=== PATIENT | male | born 1935 | race Caucasian/White ===

== ENCOUNTER 2021-05-11 07:18 | Inpatient (IN) | payer OTHER ==
[~2021-05-11] VITALS: Ht 193 cm; Wt 79.1 kg
[~2021-05-11 07:18] MED LIST: ANTACID; BLOOD PRESSURE MED; DOXA4; HYDACE5; MELO7.5; OXYCONTIN; [UNRECOGNIZED DRUG - OTHER]
[2021-05-11] MEDS ORDERED: PRAV20 PO (07:40)
[2021-05-11] MEDS ORDERED: Quinapril HCl10 MG PO (07:40)
[2021-05-11 07:43] LABS: BASOPHILS ABSOLUTE AUTO 0.05 K/mm3 (0.00-0.23); BASOPHILS PERCENT AUTO 1 % (0-2); EOSINOPHILS ABSOLUTE AUTO 0.19 K/mm3 (0.00-0.68); EOSINOPHILS PERCENT AUTO 3 % (0-6); Hemoglobin 14.9 g/dL (13.5-17.5); IMMATURE GRAN ABSOLUTE AUTO 0.01 K/mm3 (0.00-0.10); IMMATURE GRAN PERCENT AUTO 0 % (0-1); LYMPHOCYTES ABSOLUTE AUTO 1.64 K/mm3 (0.84-5.20); LYMPHOCYTES PERCENT AUTO 26 % (21-46); MONOCYTES ABSOLUTE AUTO 0.68 K/mm3 (0.16-1.47); MONOCYTES PERCENT AUTO 11 % (4-13); Mean Corpuscular HGB Conc 33.1 g/dL (31.5-36.5); Mean Corpuscular Volume 100 fL (80-100); Mean Platelet Volume 11.2 fL (9.1-12.4); NEUTROPHILS ABSOLUTE AUTO 3.87 K/mm3 (1.96-9.15); NEUTROPHILS PERCENT AUTO 60 % (41-73); Platelet Count 109 K/mm3 (150-400); RDW Coefficient Variation 12.4 % (11.7-14.2); RDW Standard Deviation 45.6 fL (35.1-46.3); Red Blood Cell Count 4.51 M/mm3 (4.30-5.90); White Blood Cell Count 6.44 K/mm3 (4.00-11.30)
[2021-05-11 08:01] LABS: Alanine Aminotransfer (ALT/SGP 40 U/L (12-78); Albumin, Blood 3.4 g/dL (3.4-5.0); Alk Phos 65 U/L (50-136); Anion Gap 4 mmol/L (6-16); Aspartate Aminotrans (AST/SGOT 38 U/L (12-37); Blood Urea Nitrogen 16 mg/dL (8-24); Bun/Creatinine Ratio 15.7 (12.0-20.0); CO2, Blood 27 mmol/L (21-32); Calcium, Blood 8.4 mg/dL (8.5-10.1); Chloride, Blood 110 mmol/L (98-108); Creatinine, Blood 1.02 mg/dL (0.60-1.20); Globulin, Blood 3.4 g/dL (2.2-4.0); Glomerular Filtration Rate >60 (60-); Glucose, Blood 102 mg/dL (70-99); Potassium, Blood 4.2 mmol/L (3.5-5.5); Sodium, Blood 141 mmol/L (136-145); Total Protein, Blood 6.8 g/dL (6.4-8.2)
[2021-05-11 08:04] LABS: Troponin I 0.665 ng/mL (0.000-0.040)
[2021-05-11 09:33] LABS: International Normalized Ratio 1.05
[2021-05-11 10:35] LABS: Influenza A, PCR NEGATIVE (NEGATIVE); Influenza B, PCR NEGATIVE (NEGATIVE); Resp Syncytial Virus, PCR NEGATIVE (NEGATIVE); SARS-Cov-2 (COVID-19) PCR, MMC NEGATIVE (NEGATIVE)
[2021-05-11 15:33] LABS: International Normalized Ratio 1.09; Prothrombin Time Results 11.4 Sec (9.7-11.5)
--- NOTE | 2021-05-11 15:55 | NUR ---
Telephone report received from [facility]. Pt has already left to go to the chemical laboratory scientist; will be having LOUIE and possible cardioversion, then angiogram.
[2021-05-11 16:01] LABS: Magnesium, Blood 2.4 mg/dL (1.6-2.4)
--- NOTE | 2021-05-11 16:01 | NUR ---
TRANSFER SUMMARY PATIENT TO THE FLOOR ALERT AND ORIENTED, STAND BY ASSIST. PATIENT ORIENTED TO THE ROOM, ADMISSION STARTED. PATIENT DENIES CP AT THIS TIME, HEPARIN RUNNING PER ORDERS. PATIENT'S SPOUSE IN THE ROOM. TELEMETRY ORDERED. [facility] FROM [facility] IN THE ROOM TO TAKE PATIENT TO PARTS IDENTIFIER. TELE ARRIVED PATIENT WAS BEING PREPARED FOR TRANSFER. TELEMETRY PLACED, PATIENT AFIB AT 114 PER RN IMMUNOLOGY. PATIENT TRANSFERED VIA WHEELCHAIR. PATIENT UP TO URINATE PRIOR TO TRANSFER. REPORT TO JAZMYNE MENDEZ IN PCU. PATIENT BELONGINGS TO PCU.
[2021-05-11 16:09] LABS: Anion Gap 4 mmol/L (6-16); Blood Urea Nitrogen 15 mg/dL (8-24); Bun/Creatinine Ratio 15.5 (12.0-20.0); CO2, Blood 29 mmol/L (21-32); Calcium, Blood 8.5 mg/dL (8.5-10.1); Chloride, Blood 108 mmol/L (98-108); Creatinine, Blood 0.97 mg/dL (0.60-1.20); Glomerular Filtration Rate >60 (60-); Glucose, Blood 99 mg/dL (70-99); Sodium, Blood 141 mmol/L (136-145)
--- NOTE | 2021-05-11 18:45 | NUR ---
Pt c/o pain at right wrist. 2 cc air removed from the band. No change to previous assessment. Right wrist noted upon arrival from slab polisher , quarter sized area of dried blood but no active bleeding. No evidence of hematoma. small amount of bruising noted under the TR band.
--- NOTE | 2021-05-11 22:11 | NUR ---
CARE ASSUMPTION UPON CARE ASSUMPTION PT A&OX4. SP02>92% ON RA. TELEMETRY READS AFIB, HR 80'S. PT HAS TR BAND INFLATED ON R RADIAL. SLIGHT BRUISING UNDER BAND. NO HEMATOMA. NO BLEEDING. PT C/O OF 3/10 PAIN ON FOREHEAD, LACERATION PRESENT. ICE PACK ON HEAD PT STATES HELPS. CALL LIGHT IN REACH. AT 2024 2 CCS LET OUT OF TR BAND. AT 2129 2 CCS LET OUT OF TR BAND AND SITE STARTED BLEEDING. 2 CC AIR REINFLATED IN BAND AND PRESSURE HELD FOR 10 MIN. BLEEDING STOPPED. BRUISING VISIBILE UNDER BAND. NO BRUISING OR HEMATOMA OUTSIDE BAND. ARM BOARD IN PLACE.
--- NOTE | 2021-05-12 04:11 | NUR ---
TR BAND FULLY DEFLATED AT THIS TIME. BRUISING UNDER BAND. NO BLEEDING OR HEMATOMA.
--- NOTE | 2021-05-12 05:56 | NUR ---
SHIFT SUMMARY PT A&OX4, PLEASANT. SP02>90% ON RA. TELEMETRY READS AFIB, HR 80'S. VSS. PT HAS TR BAND, DEFLATED THIS SHIFT, ONE EPISODE OF BLEEDING, SEE PREVIOUS NOTE. TR BAND REMOVED AT 0530. BRUISING NOTED, NO CURRENT BLEEDING, SLIGHT SWELLING AROUND WHERE EDGE OF BAND WAS, MARKED WITH SKIN MARKER. OPSITE AND ARM BOARD IN PLACE. PT REPOSITIONED SELF IN BED. PT USED URINAL AT BEDSIDE. DENIED PAIN EXCEPT FOR L EYE/HEAD LACERATION, SOLVED BY ICE PACK. PT SLEPT OFF AND ON DURING SHIFT. AMIO INFUSED DURING SHIFT, NOW CURRENTLY ON 1/2 RATE. NS BAG FINISHED DURING SHIFT. CALL LIGHT IN REACH.
[2021-05-12 07:00] LABS: CHOL/HDL RATIO 2.2; Cholesterol 100 mg/dL (50-200); HDL Cholesterol 45 mg/dL (>39); LDL/HDL RATIO 0.9; Low Density Lipoprotein Chol 41 mg/dL (0-110); Triglycerides 69 mg/dL (30-160); Very Low Density Lipoprot Chol 13 mg/dL (6-32)
--- NOTE | 2021-05-12 07:30 | NUR ---
Initial Assessment: Patient is awake, alert and oriented x4. He reports 2/10 pain to his right head/eye and 5/10 pain to his left thumb. HR irregular, a-fib in the 80s per telemetry, amiodarone gtt infusing at 0.5mg/min, patient denies CP or SOB. LS CTA, Biox 100% on RA. BT hypoactive, pt reports he has not had a BM in 3 days, he is requesting something to help her have a BM-prune juice given. PPP, no edema present at this time. Patient had a small laceration to his right eyebrow, he has some bruising around the lac that extends down below his right eye, he fell yesterday while walking his dog. He also has some bruising to his left thumb. Right radial site with opsite dressing, he has some bruising around the site and a small hematoma that has stayed in the markings. Arm board to right wrist. Patient denies other needs at this time, call light in reach. Will continue to monitor.
--- NOTE | 2021-05-12 15:15 | NUR ---
Transfer: Patient has a bed at [facility]. Report given to Micaela ER nurse at [facility]. Patient went via ground ambulance.
== END 2021-05-12 15:17 | disposition short-term general hospital (02) | DRG 282 ==
LOC: ER 07:18 → ERHOLD 07:19 → PCU 07:19 → MEDS 14:33 → PCU 15:57
PROVIDERS: Emergency Medicine; Internal Medicine Cardiovascular Disease; Pharmacist; ADMIT Family Medicine
PROC: B2111ZZ Fluoroscopy of Multiple Coronary Arteries using Low Osmolar Contrast (ICD-10-PCS; principal; 2021-05-11)
PROC: 0HQ1XZZ Repair Face Skin, External Approach (ICD-10-PCS; 2021-05-11)
DX: I21.4 Non-ST elevation (NSTEMI) myocardial infarction (principal); I25.5 Ischemic cardiomyopathy; Z20.822 Contact with and (suspected) exposure to COVID-19; I48.91 Unspecified atrial fibrillation; S01.111A Laceration without foreign body of right eyelid and periocular area, initial encounter; I10 Essential (primary) hypertension; W18.30XA Fall on same level, unspecified, initial encounter; I25.10 Atherosclerotic heart disease of native coronary artery without angina pectoris; Z98.890 Other specified postprocedural states; Z85.46 Personal history of malignant neoplasm of prostate; Z92.3 Personal history of irradiation; Z79.899 Other long term (current) drug therapy
CPT/HCPCS: 0241U; 36415; 51798; 70450; 71045; 76937; 80048; 80053; 80061; 83735; 84484; 85025; 85520; 85610; 93005; 93010; 93312; 93325; 93454; 96374; 96376; 99152; 99153; 99285-25; A9270; C1769; C1894; G0378; J0282; J1644; J2250; J2370; J2405; J3010; J7030; J7050; J7060; Q9967

== ENCOUNTER 2021-11-18 14:05 | Emergency (ER) | payer OTHER ==
[~2021-11-18] VITALS: Ht 193 cm; Wt 72.6 kg
[~2021-11-18 14:05] MED LIST changes: +PRAV20 PO; +Quinapril HCl10 MG PO
[2021-11-18 15:17] LABS: BASOPHILS ABSOLUTE AUTO 0.06 K/mm3 (0.00-0.23); BASOPHILS PERCENT AUTO 1 % (0-2); EOSINOPHILS ABSOLUTE AUTO 0.11 K/mm3 (0.00-0.68); EOSINOPHILS PERCENT AUTO 1 % (0-6); Hematocrit 40.2 % (37.0-53.0); Hemoglobin 13.4 g/dL (13.5-17.5); IMMATURE GRAN ABSOLUTE AUTO 0.02 K/mm3 (0.00-0.10); IMMATURE GRAN PERCENT AUTO 0 % (0-1); LYMPHOCYTES ABSOLUTE AUTO 0.98 K/mm3 (0.84-5.20); LYMPHOCYTES PERCENT AUTO 13 % (21-46); MONOCYTES ABSOLUTE AUTO 0.79 K/mm3 (0.16-1.47); MONOCYTES PERCENT AUTO 10 % (4-13); Mean Corpuscular HGB 33.3 pg (26.0-34.0); Mean Corpuscular HGB Conc 33.3 g/dL (31.5-36.5); Mean Corpuscular Volume 100 fL (80-100); Mean Platelet Volume 11.4 fL (9.1-12.4); NEUTROPHILS ABSOLUTE AUTO 5.67 K/mm3 (1.96-9.15); NEUTROPHILS PERCENT AUTO 74 % (41-73); NRBC ABSOLUTE 0.02 K/mm3 (0.00-0.02); NRBC Auto 0.3 /100 WBC (0.0-0.2); Platelet Count 102 K/mm3 (150-400); RDW Coefficient Variation 12.4 % (11.7-14.2); RDW Standard Deviation 45.7 fL (35.1-46.3); Red Blood Cell Count 4.03 M/mm3 (4.30-5.90); White Blood Cell Count 7.63 K/mm3 (4.00-11.30)
[2021-11-18 15:38] LABS: Albumin, Blood 3.6 g/dL (3.4-5.0); Albumin/Globulin Ratio 1.2 (0.8-1.8); Bilirubin, Total 1.5 mg/dL (0.1-1.0); Bun/Creatinine Ratio 18.6 (12.0-20.0); Calcium, Blood 8.7 mg/dL (8.5-10.1); Creatinine, Blood 1.02 mg/dL (0.60-1.20); Potassium, Blood 4.2 mmol/L (3.5-5.5); Total Protein, Blood 6.6 g/dL (6.4-8.2)
[2021-11-18] MEDS ORDERED: CLOP75 PO (16:25)
[2021-11-18] MEDS ORDERED: ATOR80 PO (16:26)
[2021-11-18] MEDS ORDERED: METO100ER PO (16:26)
[2021-11-18] MEDS ORDERED: FURO40 PO (16:26)
[2021-11-18 16:27] LABS: Source, Urine Clean Catch
[2021-11-18] MEDS ORDERED: THERA-D2000 UNIT PO (16:27)
[2021-11-18] MEDS ORDERED: ALEN70 PO (16:27)
[2021-11-18 16:34] LABS: Appearance, Urine Bloody (Clear); Bilirubin, Urine Neg (Neg); Blood, Urine 4+ (Neg); Color, Urine Red (P-Yellow); Glucose Qualitative, Urine Neg (Neg); Ketones, Urine Neg (Neg); Leukocyte Esterase, Urine Neg (Neg); Nitrite, Urine Neg (Neg); Protein, Urine 4+ (Neg); Specific Gravity, Urine 1.015 (1.003-1.022); Urobilinogen, Urine NORM (Normal); pH, Urine 6.5 (5.0-8.0)
[2021-11-18 16:56] LABS: Red Blood Cells, Urine TNTC /hpf (0-2)
[2021-11-18 16:57] LABS: Bacteria Few /hpf; Hyaline Casts 0-2 /lpf (0-2); Squamous Epithelial Cells Rare /hpf (Few)
[2021-11-18] MEDS ORDERED: CEPH500 PO (17:26)
== END 2021-11-18 17:34 | disposition home or self-care (01) ==
LOC: ER 14:05
PROVIDERS: Physician Assistant
DX: K92.1 Melena (principal); R31.9 Hematuria, unspecified; I25.10 Atherosclerotic heart disease of native coronary artery without angina pectoris; I10 Essential (primary) hypertension; E78.5 Hyperlipidemia, unspecified; Z95.1 Presence of aortocoronary bypass graft; Z79.899 Other long term (current) drug therapy
CPT/HCPCS: 36415; 80053; 81001; 85025; 87077; 87086; 87186; 93005; 93010; 99283-25; A9270

== ENCOUNTER 2021-11-26 10:31 | Day surgery (SDC) | payer OTHER ==
[~2021-11-26] VITALS: Ht 193 cm; Wt 73.3 kg
[~2021-11-26 10:31] MED LIST changes: +ALEN70 PO; +ATOR80 PO; +CEPH500 PO; +CLOP75 PO; +FURO40 PO; +METO100ER PO; +THERA-D2000 UNIT PO
== END 2021-11-26 13:00 | disposition home or self-care (01) ==
LOC: ORSCSDS 10:31
PROVIDERS: Internal Medicine Gastroenterology
PROC: 0D5P8ZZ Destruction of Rectum, Via Natural or Artificial Opening Endoscopic (ICD-10-PCS; principal; 2021-11-26 11:45)
PROC: 0DBH8ZX Excision of Cecum, Via Natural or Artificial Opening Endoscopic, Diagnostic (ICD-10-PCS; principal; 2021-11-26 11:45)
PROC: 0DBN8ZX Excision of Sigmoid Colon, Via Natural or Artificial Opening Endoscopic, Diagnostic (ICD-10-PCS; principal; 2021-11-26 11:45)
PROC: 0DBK8ZX Excision of Ascending Colon, Via Natural or Artificial Opening Endoscopic, Diagnostic (ICD-10-PCS; principal; 2021-11-26 11:45)
DX: R19.4 Change in bowel habit (principal); K62.9 Disease of anus and rectum, unspecified; K92.1 Melena; Z86.010 Personal history of colon polyps; K52.9 Noninfective gastroenteritis and colitis, unspecified; Z80.0 Family history of malignant neoplasm of digestive organs; K55.20 Angiodysplasia of colon without hemorrhage; K64.8 Other hemorrhoids; I10 Essential (primary) hypertension; I25.2 Old myocardial infarction; I48.91 Unspecified atrial fibrillation; Z79.02 Long term (current) use of antithrombotics/antiplatelets; Z85.46 Personal history of malignant neoplasm of prostate; Z79.899 Other long term (current) drug therapy
CPT/HCPCS: J2704; J7120

== ENCOUNTER 2022-08-24 12:07 | Emergency (ER) | payer OTHER ==
[~2022-08-24] VITALS: Ht 193 cm; Wt 73.5 kg
== END 2022-08-24 14:21 | disposition home or self-care (01) ==
LOC: ER 12:07
DX: M25.562 Pain in left knee (principal); M79.672 Pain in left foot; W01.0XXA Fall on same level from slipping, tripping and stumbling without subsequent striking against object, initial encounter; I25.10 Atherosclerotic heart disease of native coronary artery without angina pectoris; I10 Essential (primary) hypertension; E78.5 Hyperlipidemia, unspecified; Z79.899 Other long term (current) drug therapy
CPT/HCPCS: 73562-LT; 73630